=== PATIENT | male | born 1995 | race Caucasian/White ===

== ENCOUNTER 2017-02-04 22:02 | Emergency (ER) | payer BC ==
[~2017-02-04] VITALS: Ht 182.9 cm; Wt 86.0 kg
[2017-02-04 22:05] VITALS: TEMP 36.6; Ht 182.9 cm; Wt 86.0 kg
[2017-02-04] MEDS ORDERED: ONDANSETRON INJ 2 MG/ML 2 ML VIAL IV STA (22:24)
[2017-02-04] MEDS ORDERED: SODIUM CHLORIDE 0.9% 1000ML 1,000 ML IV ONE ×2 (22:30)
[2017-02-04] MEDS ORDERED: PANTOprazole INJ 40 MG in SYRINGE 0 ML IV ONE (22:30)
[2017-02-04 22:56] LABS: COMPLETE YES; EOS % 0.2 %; HEMATOCRIT 44.9 % (42-52); IG% 0.2 %; LYMPH % 10.7 %; LYMPH ABS # 0.99 K/uL (1.2-3.4); MEAN CELL VOLUME 84.6 fL (80-100); MEAN CORPUSCULAR HEMOGLOBIN 29.2 pg (25-34); MEAN CORPUSCULAR HGB CONC 34.5 g/dl (32-36); MEAN PLATELET VOLUME 9.4 fL (7.4-10.4); MONO % 8.1 %; NEUT % 80.8 %; PLATELET COUNT 229 K/uL (130-400); RED BLOOD COUNT 5.31 M/uL (4.7-6.1); WHITE BLOOD COUNT 9.25 K/uL (4.8-10.8)
[2017-02-04 23:14] LABS: BUN/CREATININE RATIO 16.5 (10-20); CREATININE 0.99 mg/dl (0.60-1.40); POTASSIUM 3.7 mmol/L (3.5-5.1)
[2017-02-04 23:17] LABS: ALB/GLOB RATIO 1.4 (0.9-2)
[2017-02-05] MEDS ORDERED: DiphenhydrAMINE HCL 50 MG/ML VIAL IV STA ×2 (00:06→06:10)
[2017-02-05] MEDS ORDERED: METHYLPREDNISOLONE 125 MG VIAL IV STA ×2 (00:06→06:10)
[2017-02-05 00:28] VITALS: O2SAT 100
[2017-02-05] MEDS ORDERED: EpINEphrine INJ 1MG/ML AMP 1 MG/ML AMP IM STA (01:27)
[2017-02-05] MEDS ORDERED: EpINEphrine INJ 1MG/ML AMP 1 MG/ML AMP ONE (01:28)
[2017-02-05] MEDS ORDERED: SODIUM CHLORIDE 0.9% 1000ML 1,000 ML IV ONE (01:30)
[2017-02-05] MEDS ORDERED: EPP3/2 INJ (06:16)
[2017-02-05] MEDS ORDERED: PRED20TA PO (06:16)
--- NOTE | 2017-02-05 06:41 | DIAGNOSTIC IMAGING REPORT ---
CHEST 2 VIEWS ROUTINE CLINICAL HISTORY: Chest pain, sob dyspnea COMPARISON STUDY: No previous studies for comparison. FINDINGS: The bones soft tissues and hemidiaphragms are normal. The cardiomediastinal silhouette is normal. The lungs are clear. The pulmonary vasculature is normal. IMPRESSION: Negative chest. Electronically signed by: Neal Cornell M.D. 02/05/2017 6:40 AM Dictated Date/Time: 02/05/2017 6:40 AM
--- NOTE | 2017-02-05 06:46 | EMERGENCY ROOM VISIT NOTE ---
History First contact with patient: 22:15 Chief Complaint: DIARRHEA Stated Complaint: FLU LIKE SX Nursing Triage Summary: Patient reports that he has had the diarrhea all day today; nausea; abdominal cramping. History of Present Illness The patient is a 21 year old male who presents to the Emergency Room with complaints of nausea, vomiting, and diarrhea for the past 12 hours. The patient has not had fever or chills. He is experiencing epigastric abdominal discomfort. He states that every time he eats he needs to vomit or use the bathroom. The patient has not had relief with symptoms with [id number] Imodium. He rates his discomfort a 6/10 and feels very dehydrated. The patient does not have known allergies. No recent travel history. He does not have known exposure to disease. No recent antibiotic use. Review of Systems More than 10 systems were reviewed and otherwise negative with the exception of history of present illness. Past Medical/Surgical History No chronic medical disease Family History No pertinent family history Social History Smoking Status: Never Smoker Occupation Status: [employer] student Current/Historical Medications Scheduled Epinephrine (Epipen 2-Shemar), 1 DOSE INJ DIRECTED Prednisone (Prednisone), 0 PO DAILY Allergies Coded Allergies: Pantoprazole (Verified Allergy, Severe, SOB, chest pain, hives, rash, ) Physical Exam Vital Signs Date Time Temp Pulse Resp B/P Pulse Ox O2 Delivery O2 Flow Rate FiO2 02/05/17 06:00 82 15 109/50 94 Nasal Cannula 2.0 02/05/17 05:30 93 15 107/50 94 Nasal Cannula 2.0 02/05/17 05:02 94 Nasal Cannula 2.0 02/05/17 05:01 96 16 95/48 90 Room Air 02/05/17 04:34 78 17 97/46 94 Room Air 02/05/17 04:02 69 16 114/54 94 Room Air 02/05/17 03:30 72 16 108/56 97 Nasal Cannula 2.0 02/05/17 03:11 79 18 128/52 97 Nasal Cannula 2.0 02/05/17 03:11 77 16 128/52 99 Nasal Cannula 2.0 02/05/17 02:21 70 16 107/50 98 Nasal Cannula 2.0 02/05/17 01:34 71 17 126/71 99 Nasal Cannula 2.0 02/05/17 01:07 82 18 132/78 99 Nasal Cannula 2.0 02/05/17 00:42 68 16 135/79 100 Room Air 02/05/17 00:28 100 Room Air 02/05/17 00:05 58 18 126/72 100 Room Air 02/04/17 22:05 36.6 59 18 122/74 100 Room Air Physical Exam VITALS: Vitals are noted on the nurse's note and reviewed by myself. Vital signs stable. GENERAL: Well-developed, well-nourished, white male, who is in no acute distress and resting comfortably. Patient is cooperative with the examination. HEAD: Normocephalic atraumatic. MOUTH: Mucous membranes dry. Tonsils are not enlarged. Pharynx without erythema, blood, or exudate. Uvula midline. Airway patent. NECK: Supple without nuchal rigidity. No lymphadenopathy. No thyromegaly. Cervical spine is nontender. HEART: Regular rate and rhythm without murmurs gallops or rubs. LUNGS: Clear to auscultation bilaterally without wheezes, rales or rhonchi. No retractions or accessory muscle use. ABDOMEN: Positive normal bowel sounds x 4. Soft with mild epigastric abdominal pain. No rebound or guarding. No lower abdominal tenderness. No CVA tenderness. MUSCULOSKELETAL: No muscle atrophy, erythema, or edema noted. Full range of motion without joint tenderness in all extremities. Medical Decision & Procedures Laboratory Results 02/04/17 22:40 Red Blood Count 5.31, Mean Corpuscular Volume 84.6, Mean Corpuscular Hemoglobin 29.2, Mean Corpuscular Hemoglobin Concent 34.5, Mean Platelet Volume 9.4, Neutrophils (%) (Auto) 80.8, Lymphocytes (%) (Auto) 10.7, Monocytes (%) (Auto) 8.1, Eosinophils (%) (Auto) 0.2, Basophils (%) (Auto) 0.0, Neutrophils # (Auto) 7.47, Lymphocytes # (Auto) 0.99, Monocytes # (Auto) 0.75, Eosinophils # (Auto) 0.02, Basophils # (Auto) 0.00 02/04/17 22:40 Test 02/04/17 22:40 White Blood Count 9.25 K/uL (4.8-10.8) Red Blood Count 5.31 M/uL (4.7-6.1) Hemoglobin 15.5 g/dL (14.0-18.0) Hematocrit 44.9 % (42-52) Mean Corpuscular Volume 84.6 fL (80-100) Mean Corpuscular Hemoglobin 29.2 pg (25-34) Mean Corpuscular Hemoglobin Concent 34.5 g/dl (32-36) Platelet Count 229 K/uL (130-400) Mean Platelet Volume 9.4 fL (7.4-10.4) Neutrophils (%) (Auto) 80.8 % Lymphocytes (%) (Auto) 10.7 % Monocytes (%) (Auto) 8.1 % Eosinophils (%) (Auto) 0.2 % Basophils (%) (Auto) 0.0 % Neutrophils # (Auto) 7.47 K/uL (1.4-6.5) Lymphocytes # (Auto) 0.99 K/uL (1.2-3.4) Monocytes # (Auto) 0.75 K/uL (0.11-0.59) Eosinophils # (Auto) 0.02 K/uL (0-0.5) Basophils # (Auto) 0.00 K/uL (0-0.2) RDW Standard Deviation 38.4 fL (36.4-46.3) RDW Coefficient of Variation 12.6 % (11.5-14.5) Immature Granulocyte % (Auto) 0.2 % Immature Granulocyte # (Auto) 0.02 K/uL (0.00-0.02) Anion Gap 8.0 mmol/L (3-11) Est Creatinine Clear Calc Drug Dose 130.7 ml/min Estimated GFR () 126.5 Estimated GFR (Non- 109.2 BUN/Creatinine Ratio 16.5 (10-20) Calcium Level 9.0 mg/dl (8.5-10.1) Total Bilirubin 0.4 mg/dl (0.2-1) Aspartate Amino Transf (AST/SGOT) 13 U/L (15-37) Alanine Aminotransferase (ALT/SGPT) 25 U/L (12-78) Alkaline Phosphatase 60 U/L (45-117) Total Protein 7.3 gm/dl (6.4-8.2) Albumin 4.2 gm/dl (3.4-5.0) Globulin 3.1 gm/dl (2.5-4.0) Albumin/Globulin Ratio 1.4 (0.9-2) Date/Time Source Procedure Growth Status 02/04/17 23:08 Stool C.difficile Toxin B Gene (PCR) - Final No C. difficile toxin B gene detected Complete Medications Administered Medications (Trade) Dose Ordered Sig/Tootie Route Start Time Stop Time Status Last Admin Dose Admin Sodium Chloride 1,000 ml @ 999 mls/hr Q1H1M ONCE IV 02/04/17 22:30 02/04/17 23:30 DC 02/04/17 23:07 999 MLS/HR Sodium Chloride 1,000 ml @ 999 mls/hr Q1H1M ONCE IV 02/04/17 22:30 02/04/17 23:30 DC 02/04/17 23:07 999 MLS/HR Pantoprazole Sodium/Syringe (Protonix Inj/ Syringe) 10 ml @ 5 mls/min NOW ONCE IV 02/04/17 22:30 02/04/17 22:31 DC 02/04/17 23:11 5 MLS/MIN Ondansetron HCl (Zofran Inj) 4 mg NOW STAT IV 02/04/17 22:24 02/04/17 22:26 DC 02/04/17 23:07 4 MG Methylprednisolone Sodium Succinate (Solu-Medrol IV) 125 mg NOW STAT IV 02/05/17 00:06 02/05/17 00:07 DC 02/05/17 00:23 125 MG Diphenhydramine HCl (Benadryl Inj) 25 mg NOW STAT IV 02/05/17 00:06 02/05/17 00:07 DC 02/05/17 00:23 25 MG Epinephrine HCl 0.3 mg 0.3 mg NOW STAT IM 02/05/17 01:27 02/05/17 01:28 DC 02/05/17 01:34 0.3 MG Sodium Chloride (Nss 1000ml) 1,000 ml @ 999 mls/hr Q1H1M ONCE IV 02/05/17 01:30 02/05/17 02:30 DC 02/05/17 01:34 999 MLS/HR ED Course Physical exam and history were performed. Nursing notes and EMR were reviewed. Patient appears to have gastroenteritis symptoms of nausea, vomiting, diarrhea for the past one day. The patient does appear with dry mucous membranes on exam. IV access was established and labs were obtained. Patient was hydrated with 2 L normal saline. Due to his nausea and epigastric abdominal discomfort and did elect to give him Zofran and Protonix. The patient's blood work is as above and was reviewed. He does not have significant elevated white blood cell count, gross anemia, bandemia, or significant electrolyte imbalance. He does not appear in acute kidney injury. Stool sample was collected and C. difficile was negative. Cultures are pending. It was brought to my attention that after the initiation of the Protonix the patient began having flushing of his chest. I return to the room, and the patient does appear to be having an allergic reaction to the Protonix. He was given IV Solu-Medrol and IV Benadryl. The patient was monitored closely over the course of the next 20-30 minutes, and did not have significant improvement of his reaction. I did then elect to give him 0.3 mg IM epinephrine. This did significantly abort the patient's reaction, as I feel that he is having an allergic reaction to the Protonix. The patient was monitored for greater than 8 total hours here in the emergency department. He was able to sleep comfortably overnight for 4 or 5 hours after Solu-Medrol, Benadryl, and epinephrine. A recheck of the patient in the morning showed a significant improvement of his symptoms. He did have mild urticaria of the right arm where the Protonix was initially administered. The patient and I did have a conversation regarding options of care. He does feel comfortable with discharge home, and this appears reasonable. The patient will be given a course of prednisone and an EpiPen. This is finals week at the [facility], and I recommended the patient follow with [facility] later in the afternoon today for further management. The patient was certainly invited back to the emergency department with any new, worsening, or concerning symptoms. I recommended he avoid Protonix in the future. His other symptoms are likely viral in nature and should improve over time. The patient was pleased with this and rated his discomfort a 0/10 at the time of departure. The chart was completed utilizing [employer]. Grammatical errors, random word insertions, pronoun errors, and incomplete sentences are an occasional consequence of this system due to software limitations, ambient noise, and hardware issues. Any formal questions or concerns about the content, text, or information contained within the body of this dictation should be directly addressed to the provider for clarification. . Medical Decision Differential diagnosis: Etiologies such as viral infection, foodborne illness, allergic reaction, anaphylaxis, urticaria, Jimenez-Antoine syndrome, toxic epidermal necrolysis, erythema multiforme, cellulitis, as well as others were entertained. Impression Primary Impression: Gastroenteritis Additional Impression: Allergic reaction Departure Information Dispostion Home / Self-Care Condition GOOD Prescriptions Epinephrine (EPIPEN 2-SHEMAR) 0.3 Mg Inj 1 DOSE INJ DIRECTED for ALLERGIC REACTION, #1 PKT 1 Refill Prov: Jose Woodruff PA-C 02/05/17 Prednisone (Prednisone) 20 Mg Tab 0 PO DAILY, #18 TAB 3 DAILY FOR 3 DAYS, THEN 2 DAILY FOR 3 DAYS, THEN 1 DAILY FOR 3 DAYS. Prov: Jose Woodruff PA-C 02/05/17 Referrals [facility] (PCP) Forms HOME CARE DOCUMENTATION FORM, IMPORTANT VISIT INFORMATION Patient Instructions My [facility] Additional Instructions You were seen and evaluated today on an emergency basis only. This is not a substitute for, or an effort to provide, complete comprehensive medical care. It is not possible to recognize and treat all injuries or illnesses in a single emergency department visit. For this reason it is recommended that you followup with [facility] later today for ongoing care and evaluation. Take prednisone as prescribed. Use your EpiPen if needed now or in the future. If you need to use this for an allergic reaction please seek immediate medical attention afterwards. You are welcome to return to the emergency department anytime with new, worsening, or concerning symptoms. Problem Qualifiers
[2017-02-05 07:03] VITALS: BP 101/54; PULSE 98; O2SAT 92
== END 2017-02-05 07:03 | disposition home or self-care (01) ==
LOC: C.EDB 22:05 → C.EDA 02-05 07:03
DX: K52.9 Noninfective gastroenteritis and colitis, unspecified (principal); T78.40XA Allergy, unspecified, initial encounter; X58.XXXA Exposure to other specified factors, initial encounter; Z79.899 Other long term (current) drug therapy; Z88.8 Allergy status to other drugs, medicaments and biological substances